=== PATIENT | male | born 1960 | race Caucasian/White ===

== ENCOUNTER 2018-03-15 06:53 | Day surgery (SDC) | payer BC ==
[~2018-03-15] VITALS: Ht 175.3 cm; Wt 89.8 kg
[2018-03-15 07:37] VITALS: BP 116/71; PULSE 61; TEMP 97.9
[2018-03-15 07:46] LABS: INR 1.1 (0.8-3.0); PROTHROMBIN TIME 12.9 SECONDS (9.7-12.8)
[2018-03-15] MEDS ORDERED: ZYLOPRIM 100MG100 MG PO (08:15)
[2018-03-15] MEDS ORDERED: LOTREL 10 MG-201 CAP PO (08:16)
[2018-03-15] MEDS ORDERED: COREG 3.123.125 MG/T PO (08:18)
[2018-03-15] MEDS ORDERED: TAMBOCOR50 MG PO (08:19)
[2018-03-15] MEDS ORDERED: PRAVACHOL 20MG20 MG PO (08:19)
[2018-03-15] MEDS ORDERED: ASPIRIN 81M81 MG/TA2 PO (08:20)
[2018-03-15] MEDS ORDERED: EPA FISH OIL1 SGL PO (08:21)
[2018-03-15] MEDS ORDERED: COUMADIN 22.5 MG/TAB PO (08:22)
[2018-03-15] MEDS ORDERED: COUMADIN 5MG5 MG/TAB PO (08:23)
[2018-03-15] MEDS ORDERED: REVATIO20 MG PO (08:23)
[2018-03-15 09:10] VITALS: BP 105/68; PULSE 59
[2018-03-15] MEDS ORDERED: NORCO 325 MG-51 TAB PO (09:19)
[2018-03-15 09:25] VITALS: BP 104/65; PULSE 54
[2018-03-15 09:40] VITALS: BP 106/70; PULSE 53
[2018-03-15 09:55] VITALS: BP 109/70; PULSE 56
== END 2018-03-15 10:55 | disposition home or self-care (01) ==
LOC: SDCO 06:53
PROVIDERS: Surgery
DX: K64.2 Third degree hemorrhoids (principal); K92.1 Melena; I10 Essential (primary) hypertension; K21.9 Gastro-esophageal reflux disease without esophagitis; G47.33 Obstructive sleep apnea (adult) (pediatric); Z79.01 Long term (current) use of anticoagulants; Z95.2 Presence of prosthetic heart valve; Z90.49 Acquired absence of other specified parts of digestive tract; Z80.7 Family history of other malignant neoplasms of lymphoid, hematopoietic and related tissues
CPT/HCPCS: J0290; J1885; J2250; J2704; J3010; J7120

== ENCOUNTER 2020-05-15 13:24 | Inpatient (IN) | payer BC ==
[~2020-05-15] VITALS: Ht 175.3 cm; Wt 93.2 kg
[~2020-05-15 13:24] MED LIST: ASPIRIN 81M81 MG/TA2 PO; COREG 3.123.125 MG/T PO; COUMADIN 22.5 MG/TAB PO; COUMADIN 5MG5 MG/TAB PO; EPA FISH OIL1 SGL PO; LOTREL 10 MG-201 CAP PO; NORCO 325 MG-51 TAB PO; PRAVACHOL 20MG20 MG PO; REVATIO20 MG PO; TAMBOCOR50 MG PO; ZYLOPRIM 100MG100 MG PO
--- NOTE | 2020-05-25 09:27 | NUR ---
Patient has arrived to the floor. He is alert, oriented adn independent in the room. His POC has been discussed and he is understanding. Patient denies pain at this time. No dizziness, SOB, or weakness while ambulating independently. Patient has been advised that he can move arond the room independently but should call if he feels unsteady or unable to maintain stability. is currently at the bedside. IV has been initiated in left AC with no issues. Patient has been oriented to the room and call system. Continuing to monitor. Call light is inr each.
[2020-05-25 09:52] LABS: BASO # 0.1 (0.0-0.2); BASO % 1.5 % (0.0-2.0); EOS # 0.9 (0.0-0.7); EOS % 11.2 % (0-4.0); GRAN # 3.7 (1.4-6.5); GRAN % 43.2 % (42.2-75.2); HEMATOCRIT 51.9 % (42.0-52.0); LYMPH # 2.9 (1.2-3.4); LYMPH % 34.9 % (20.0-51.0); MEAN CELL VOLUME 93 fl (80.0-100.0); MEAN CORPUSCULAR HEMOGLOBIN 31 pg (27.0-31.0); MEAN CORPUSCULAR HGB CONC 33 g/dl (33.0-37.0); MEAN PLATELET VOLUME 9.2 fl (7.4-10.4); MONO # 0.7 (0.1-0.6); MONO % 8.7 % (1.7-9.3); PLATELET COUNT 217 K/mm3 (130-400); RED BLOOD COUNT 5.58 M/mm3 (4.20-5.60); REDCELL DISTRIBUTION WIDTH-CV 13.2 % (11.5-14.5)
[2020-05-25 09:58] LABS: INR 2.5 (0.8-3.0); PROTHROMBIN TIME 28.6 SECONDS (9.7-12.8)
[2020-05-25 09:59] LABS: ALBUMIN 4.4 gm/dL (3.5-5.0); BILIRUBIN,TOTAL 0.7 mg/dL (0.0-1.0); CALCIUM 9.7 mg/dL (8.4-10.2); CREATININE, serum 1.23 (0.66-1.25); MAGNESIUM 2.1 mg/dL (1.6-2.3); POTASSIUM 4.6 mmol/L (3.4-5.0); TOTAL PROTEIN 7.7 gm/dL (6.4-8.2)
[2020-05-25 10:08] VITALS: BP 113/77; PULSE 76; TEMP 98
[2020-05-25 11:53] VITALS: BP 109/72; PULSE 70; TEMP 97.7
[2020-05-25 16:48] VITALS: BP 134/86; PULSE 68; TEMP 98.2
--- NOTE | 2020-05-25 17:16 | NUR ---
Patient has had no issues since arriving to the floor. he is stable and aware of his POC. No complaints of pain or discomfort. No dizziness, SOB and unsteadiness on ambulation. PAtient remains independent in the room. Will continue to [facility]. Call light is in reach.
[2020-05-25 19:13] VITALS: BP 129/80; PULSE 74; TEMP 98.2
--- NOTE | 2020-05-25 19:30 | NUR ---
Received report from Betty. Patient awake in bed. He denies pain. He is independent in the room. He is on room air. Call light within reach.
[2020-05-26 00:05] VITALS: BP 120/83; PULSE 67; TEMP 97.8
[2020-05-26 03:50] VITALS: BP 119/82; PULSE 60; TEMP 97.9
--- NOTE | 2020-05-26 06:14 | NUR ---
Patient had uneventful night. He denies pain. No other complains noted.
[2020-05-26 07:21] LABS: BASO # 0.1 (0.0-0.2); BASO % 1.3 % (0.0-2.0); EOS # 0.9 (0.0-0.7); EOS % 10.2 % (0-4.0); GRAN # 3.7 (1.4-6.5); GRAN % 42.9 % (42.2-75.2); HEMATOCRIT 50.4 % (42.0-52.0); HEMOGLOBIN 16.6 g/dl (13.5-18.0); LYMPH # 3.1 (1.2-3.4); LYMPH % 36.3 % (20.0-51.0); MEAN CELL VOLUME 95 fl (80.0-100.0); MEAN CORPUSCULAR HEMOGLOBIN 31 pg (27.0-31.0); MEAN CORPUSCULAR HGB CONC 33 g/dl (33.0-37.0); MEAN PLATELET VOLUME 9.9 fl (7.4-10.4); MONO # 0.8 (0.1-0.6); MONO % 8.7 % (1.7-9.3); PLATELET COUNT 196 K/mm3 (130-400); RED BLOOD COUNT 5.32 M/mm3 (4.20-5.60); REDCELL DISTRIBUTION WIDTH-CV 13.3 % (11.5-14.5)
[2020-05-26 07:24] LABS: INR 2.4 (0.8-3.0); PROTHROMBIN TIME 27.6 SECONDS (9.7-12.8)
[2020-05-26 07:30] LABS: CALCIUM 9.5 mg/dL (8.4-10.2); CREATININE, serum 1.32 (0.66-1.25); MAGNESIUM 2.2 mg/dL (1.6-2.3); POTASSIUM 4.3 mmol/L (3.4-5.0)
[2020-05-26 07:45] VITALS: BP 125/75; PULSE 64; TEMP 97.7
--- NOTE | 2020-05-26 08:46 | NUR ---
Assessment complete. PAtient sitting up in recliner, states he feels just fine at this time. No complaints of pain or discomfort. Patient denies SOB, dizziness or weakness. IV site is CD&I, flushed well. Pt remains independent in the room with no issues. patient is aware of his PO. No other needs were expressed at this time. Call light is in reach.
--- NOTE | 2020-05-26 09:28 | NUR ---
SW met with the patient to discuss discharge plan. The patient lives in [place] with his , Ericka (ph#[phone]). He reports independence with ADLs and does not have any DME. The patient's PCP is Dr. Gianni Webb and he receives his medications from [facility]. He reports no difficulties obtaining his meds. The patient does not have a DPOA-HC in EMR, but he states that he does have one completed at that it designates his . The patient plans to return home with his upon discharge. No additional needs at this time.
[2020-05-26 11:36] VITALS: BP 120/83; PULSE 67; TEMP 97.7
--- NOTE | 2020-05-26 11:47 | NUR ---
First visit from the needle control cheniller. No needs right now.
[2020-05-26 15:41] VITALS: BP 122/77; PULSE 57; TEMP 97.9
--- NOTE | 2020-05-26 16:29 | NUR ---
Patient has had an uneventful shift. He remains independent in the room with no issues. Consent for procedure signed--- pt understands. Minimal needs through the day. Continuing to monitor. Call light is in reach.
--- NOTE | 2020-05-26 19:16 | NUR ---
Received report from Betty. Patient sitting in the recliner. Patient's on the bedside. Informed patient regarding the cardioversion tomorrow and to be NPO midnight. He is aware and verbalizes understanding. He denies pain.
[2020-05-26 19:21] VITALS: BP 119/78; PULSE 68; TEMP 98.1
[2020-05-27] VITALS (10 sets, daily range): BP systolic 120–136; BP diastolic 82–96; PULSE 53–77; TEMP 97.2–99.3
--- NOTE | 2020-05-27 05:55 | NUR ---
Patient slept most of the night. He was using his CPAP. No complains of pain. Maintained on NPO.
--- NOTE | 2020-05-27 07:00 | NUR ---
Shift assessment completed. Pt sitting up in recliner. BP 130/90. HR 68 irreg. Pt has no complaints of chest pain or pain otherwise.
--- NOTE | 2020-05-27 07:30 | NUR ---
Pt has a student nurse caring for him this am. Pt is A/O x4. His breathing is even and unlabored. No pain. Denies SOB or dizziness. POC discussed with patient who verbalized understanding.
[2020-05-27 07:41] LABS: BASO # 0.1 (0.0-0.2); BASO % 1.4 % (0.0-2.0); GRAN # 4.3 (1.4-6.5); HEMATOCRIT 51.9 % (42.0-52.0); HEMOGLOBIN 16.8 g/dl (13.5-18.0); LYMPH # 3.1 (1.2-3.4); LYMPH % 32.9 % (20.0-51.0); MEAN CELL VOLUME 93 fl (80.0-100.0); MEAN CORPUSCULAR HEMOGLOBIN 30 pg (27.0-31.0); MEAN CORPUSCULAR HGB CONC 32 g/dl (33.0-37.0); MEAN PLATELET VOLUME 9.9 fl (7.4-10.4); MONO # 0.7 (0.1-0.6); MONO % 7.9 % (1.7-9.3); PLATELET COUNT 208 K/mm3 (130-400); RED BLOOD COUNT 5.58 M/mm3 (4.20-5.60); REDCELL DISTRIBUTION WIDTH-CV 13.2 % (11.5-14.5)
[2020-05-27 07:48] LABS: INR 2.3 (0.8-3.0); PROTHROMBIN TIME 25.7 SECONDS (9.7-12.8)
[2020-05-27 07:51] LABS: CALCIUM 9.5 mg/dL (8.4-10.2); CREATININE, serum 1.21 (0.66-1.25); MAGNESIUM 2.2 mg/dL (1.6-2.3); POTASSIUM 4.3 mmol/L (3.4-5.0)
--- NOTE | 2020-05-27 10:10 | NUR ---
Pt back from CV at this time.
--- NOTE | 2020-05-27 10:15 | NUR ---
Pt returned from procedure. BP 134/82. O2Sat 94%. Pulse 67. Pt denies any complaints of pain and is doing well. Resting in bed with at bedside.
[2020-05-27] MEDS ORDERED: BETAPACE 80MG80 MG PO (10:47)
[2020-05-27] MEDS ORDERED: ZESTRIL 20MG TA20 MG PO (10:48)
--- NOTE | 2020-05-27 12:48 | NUR ---
Discharge paperwork and instructions reviewed with patient. ALl questions answered at this time. IV to LAC dc'd catheter tip intact. Pt wheeled out at this time.
--- NOTE | 2020-05-27 14:17 | NUR ---
The patient discharged home today, 05/27.
== END 2020-05-27 13:00 | disposition home or self-care (01) | DRG 310 ==
LOC: MEDICAL 05-25 04:59
PROVIDERS: ADMIT Internal Medicine Cardiovascular Disease
PROC: 5A2204Z Restoration of Cardiac Rhythm, Single (ICD-10-PCS; principal; 2020-05-25)
DX: I48.0 Paroxysmal atrial fibrillation (principal)
CPT/HCPCS: J2704